=== PATIENT | male | born 2000 | race Caucasian/White ===

== ENCOUNTER 2023-04-25 20:24 | Emergency (ER) | payer OTHER ==
[2023-04-25] MEDS: Diphtheria,Pertussis(Acell),Tetanus Vaccine 0.5 ML Syringe IM ONE (21:28)
== END 2023-04-25 21:43 ==
LOC: MW.ED 20:24
DX: S00.81XA Abrasion of other part of head, initial encounter (principal); Y04.2XXA Assault by strike against or bumped into by another person, initial encounter; Z23 Encounter for immunization
CPT/HCPCS: 70450; 70450-26; 90471; 90715; 99282; 99284-25